=== PATIENT | male | born 1980 | race Two or more races ===

== ENCOUNTER 2017-09-22 13:10 | Emergency (ER) | payer OTHER ==
[2017-09-22 13:23] VITALS: BP 124/71; PULSE 69; RESP 18; TEMP 98.6; O2SAT 96
[2017-09-22] MEDS ORDERED: KETOROLAC 15 MG/1 ML SDV IVP ONE (13:47)
--- NOTE | 2017-09-22 13:48 | EDPHY ---
H & P Stated Complaint: felt pull in lower abd lifting box at work last Time Seen by Provider: 09/22/17 13:39 HPI/ROS: CHIEF COMPLAINT: Lower abdominal pain HISTORY OF PRESENT ILLNESS: The patient presents to the emergency department for evaluation of injury sustained at work last . He reportedly was taking a heavy box off a shelf. He did not expect the box to be particularly have every and ended up developing a lower abdominal strain. The patient denies any sensation of a bulge in his abdominal wall. The patient denies any change in his bowel habits. He denies any hematochezia or vomiting. He has had no history of fever. The patient has remote history of nephro/ ureterolithiasis. He states the pain he is experiencing today is completely different from that. The patient reports bilateral lower rectus muscle pain which is worsened with flexion and axial rotation of the trunk. REVIEW OF SYSTEMS: A comprehensive 10 point review of systems is otherwise negative aside from elements mentioned in the history of present illness. Source: Patient Exam Limitations: No limitations - Personal History Current Tetanus/Diphtheria Vaccine: Yes - Medical/Surgical History Hx Asthma: No Hx Chronic Respiratory Disease: No Hx Diabetes: No Hx Cardiac Disease: No Hx Renal Disease: No Hx Cirrhosis: No Hx Alcoholism: No Hx HIV/AIDS: No Hx Splenectomy or Spleen Trauma: No Other PMH: denies - Social History Smoking Status: Never smoked - Physical Exam Exam: General Appearance: Alert, no distress Respiratory: There are no retractions, lungs are clear to auscultation Cardiovascular: Regular rate and rhythm Gastrointestinal: Tenderness to palpation noted bilateral lower rectus muscle just superior to the pelvic insertion, no palpable hernia, no evidence of an acute abdomen Neurological: A&O, normal motor function, normal sensory exam, normal cranial nerves Skin: Warm and dry, no rashes Musculoskeletal: Neck is supple nontender Extremities: symmetrical, full range of motion Constitutional: Initial Vital Signs Temperature (C) 37 C 09/22/17 13:20 Heart Rate 69 09/22/17 13:20 Respiratory Rate 18 09/22/17 13:20 Blood Pressure 124/71 H 09/22/17 13:20 O2 Sat (%) 96 09/22/17 13:20 O2 Delivery Mode Room Air Allergies/Adverse Reactions: No Known Allergies Allergy (Verified 09/22/17 13:20) Home Medications: Medication Instructions Recorded NK [No Known Home Meds] 09/22/17 Medical Decision Making ED Course/Re-evaluation: The patient presents to the emergency department with a abdominal wall strain. There is nothing to suggest a obvious surgical hernia or intra-abdominal infection. The patient has been instructed to continue Tylenol and ibuprofen as needed for pain. He is given customary aftercare and return precautions. Departure - Departure Disposition: Home, Routine, Self-Care Clinical Impression: Strain of rectus abdominis muscle Condition: Good Instructions: Musculoskeletal Pain (ED) Additional Instructions: 1. Take Ibuprofen or Motrin 600 mg by mouth three times a day. 2. Please follow up with the surgeon you have been referred to for the development of any worsening symptoms. Please return to the ED if you developed a bulge in your abdominal wall which does not reduce into your abdominal cavity., severe pain, vomiting or other concerns. 3. I believe your symptoms are secondary to a strain of your abdominal muscle and connective tissue. I am optimistic that it should improve over the next several weeks. Please avoid heavy lifting until your symptoms have resolved. Referrals: Cruz Navarro MD [Medical Doctor] - As per Instructions
== END 2017-09-22 14:20 | disposition home or self-care (01) ==
DX: S39.011A Strain of muscle, fascia and tendon of abdomen, initial encounter (principal); X50.0XXA Overexertion from strenuous movement or load, initial encounter; Y92.69 Other specified industrial and construction area as the place of occurrence of the external cause; Y99.0 Civilian activity done for income or pay; Y93.89 Activity, other specified